=== PATIENT | female | born 1990 | race Caucasian/White ===

== ENCOUNTER 2023-05-21 21:19 | Emergency (ER) | payer OTHER ==
[2023-05-21] MEDS ORDERED: ONDANSETRON 4 MG/2 ML VIAL ONE (21:46)
[2023-05-21] MEDS ORDERED: KETOROLAC 30 MG/ML INJ ONE (21:47)
[2023-05-21] MEDS ORDERED: NA CHLORIDE 0.9% 1,000 ML ONE (21:47)
[2023-05-21] MEDS ORDERED: FAMOTIDINE 20 MG/2 ML VIAL IV ONE (21:47)
[2023-05-21] MEDS ORDERED: ACETAMINOPHEN 500 MG TAB ONE (23:40)
[2023-05-21 23:51] LABS: Specific Gravity 1.019 (1.005-1.030)
[2023-05-21 23:53] LABS: Absolute Lymphocytes (CBC) 1.2 K/uL (0.7-4.9); Absolute Monocytes 0.4 K/uL (0.1-1.3); Absolute Neutrophil 5.8 K/uL (1.8-8.0); Basophils % 0.3 % (0-1.3); Eosinophils % 0.5 % (0-4.4); Hematocrit 46.1 % (36.0-45.0); Hemoglobin 15.6 g/dL (12.0-15.0); Lymphocytes % 15.9 % (15.3-44.8); MCH 30.9 pg (27.0-35.0); MCHC 33.8 g/dL (32.0-36.0); MCV 91.3 fL (80-100); MPV 8.9 fL (7.6-11.3); Monocytes % 5.5 % (3.3-12.3); Neutrophils % 77.8 % (41.7-73.7); Nucleated Red Blood Cells % 0.2 % (0-0); Platelets 177 thou/uL (152-406); RBC Red Blood Cell Count 5.05 M/uL (3.86-4.86); Red Cell Distribution Width 12.8 % (12.1-15.2)
[2023-05-22 00:12] LABS: Specific Gravity 1.018 (1.005-1.030); Urine Bacteria <20 /HPF (<20); Urine Bilirubin NEGATIVE (Negative); Urine Blood Negative (Negative); Urine Clarity Extremely Turbid (Clear); Urine Color Yellow (Yellow); Urine Culture Reflex Order REFLEXED; Urine Glucose NEGATIVE (Negative); Urine Ketones NEGATIVE (Negative); Urine Microscopic Reflex YN ORDER UMIC; Urine Mucus Slight /HPF (None Seen); Urine Nitrite NEGATIVE (Negative); Urine Protein TRACE (Negative); Urine RBC <5 /HPF (None Seen); Urine Urobilinogen Normal (Normal); Urine WBC 20-50 /HPF (<5)
[2023-05-22 00:14] LABS: Albumin 3.9 g/dL (3.4-5.0); Albumin/Globulin Ratio 0.9 (1.1-1.8); Bilirubin Total 2.9 mg/dL (0.2-1.0); Globulin 4.3 g/dL (2.3-3.5); Protein, Total 8.2 g/dL (6.4-8.2)
[2023-05-22] MEDS ORDERED: FENTANYL CITR 100 MCG/2 ML ONE (00:28)
[2023-05-22] MEDS ORDERED: NA CHLORIDE 0.9% 1,000 ML ONE (01:49)
[2023-05-22 02:08] LABS: Albumin 3.5 g/dL (3.4-5.0); Albumin/Globulin Ratio 1.1 (1.1-1.8); Anion Gap 7.9 mEq/L (5.0-15.0); Bilirubin Indirect, Calculated 1.9 mg/dL (0.2-0.8); Bilirubin Total 2.9 mg/dL (0.2-1.0); Globulin 3.3 g/dL (2.3-3.5); Potassium 3.9 mEq/L (3.5-5.1); Protein, Total 6.8 g/dL (6.4-8.2)
--- NOTE | 2023-05-22 03:10 | EDPHYS ---
Physician Documentation [facility] Name: Karen Quick Age: 32 yrs Sex: Female : 1990 Arrival Date: 05/21/2023 Time: 21:19 Bed 15 Private MD: ED Physician Oren Gurrola HPI: 05/20 23:28 This 32 yrs old Female presents to ER via Ambulatory with complaints of Vomiting, Back kb Pain, Abdominal Pain. 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 Denies urinary symptoms, fever. . CLINICAL AIDE: 21:40 LMP 04/29/2023, unknown km8 Historical: - Allergies: 21:40 No Known Allergies; km8 - Home Meds: 21:40 None [Active]; km8 - PMHx: 21:40 None; km8 - PSHx: 21:40 Tonsillectomy; km8 - Immunization history:: Adult Immunizations unknown. - Infectious Disease History:: Denies. - Social history:: Smoking status: Patient denies any tobacco usage or history of. Patient/guardian denies using alcohol, street drugs. ROS: 23:29 Constitutional: As per HPI kb Exam: 23:29 Constitutional: This is a well developed, well nourished patient who is awake, alert, kb and in no acute distress. Head/Face: Normocephalic, atraumatic. ENT: Moist Mucous membranes Cardiovascular: Regular rate Respiratory: Respirations even and unlabored. No increased work of breathing. Talking in full sentences Back: No spinal tenderness. No costovertebral tenderness. Full range of motion. Skin: Warm, dry with normal turgor. Normal color. MS/ Extremity: Pulses equal, no cyanosis. Neurovascular intact. Full, normal range of motion. Neuro: Awake and alert, GCS 15, oriented to person, place, time, and situation. Moves all extremities. Normal gait. 23:49 Abdomen/GI: Inspection: abdomen appears normal, Bowel sounds: normal, Palpation: soft, kb in all quadrants, mild abdominal tenderness, in the right upper quadrant, Vital Signs: 21:39 BP 121 / 88; Pulse 78; Resp 16; Temp 96.9(TE); Pulse Ox 100% on R/A; Weight 65.77 kg km8 (R); Height 5 ft. 3 in. (R); Pain 8/; 21:46 BP 118 / 80; Pulse 57; Resp 17 S; Pulse Ox 100% on R/A; ha1 22:40 BP 99 / 60; Pulse 55; Resp 19 S; Pulse Ox 100% on R/A; ha1 23:40 BP 105 / 55; Pulse 61; Resp 17 S; Temp 97.9; Pulse Ox 98% ; ha1 05/21 00:50 BP 99 / 60; Pulse 57; Resp 17 S; Pulse Ox 98% ; ha1 01:47 BP 96 / 52; Pulse 74; Resp 16; Pulse Ox 96% on R/A; 8 02:00 BP 90 / 56; Pulse 56; Resp 16; Pulse Ox 100% on R/A; 8 04:02 BP 91 / 60; Pulse 51; Resp 17; Temp 98; Pulse Ox 99% ; Pain 0/10; bm8 05/20 21:39 Body Mass Index 25.69 (65.77 kg, 160.02 cm) [facility] 05/20 21:39 Pain Scale: Adult [facility] 04:02 Pain Scale: Adult [facility] MDM: 05/20 21:30 Patient medically screened. kb 23:29 Differential diagnosis: uti, kidney stone, pyelonephrosis. Data reviewed: vital signs, kb nurses notes. 05/21 00:36 Counseling: I had a detailed discussion with the patient and/or guardian regarding the kb historical points, exam findings, and any diagnostic results supporting the discharge/admit diagnosis, lab results, radiology results, the need to transfer to another facility, [facility] does not immediately have the required specialist. Refusal of service: The patient/guardian displays adequate decision making capability and despite a detailed discussion of alternatives, benefits, risks, and consequences refuses: transfer to [place] or [facility] at this time. Requests us to try [facility]. 00:43 ED course: [facility] does not have GI convertible top installer. Recommended [place]. Pt states she does kb not want to go to to [place] because she doesn't want to go outside of [facility] ([place]). Requests [facility]. [facility] does not have GI convertible top installer. Will contact [facility]. 00:47 Transition of care: After a detail discussion of the patient's case, care is kb transferred to Oren Gurrola MD. ED course: [facility] does not have GI convertible top installer. ED course: Mother in room now to discuss how they would like to proceed. 02:48 ED course: IPROCEDURE: Chest Abdomen Pelvis W Cont CLINICAL HISTORY: abd pain sp4 TECHNIQUE: Contiguous axial images obtained through the chest , abdomen and pelvis following the uneventful administration of IV contrast. Coronal and sagittal reformatted images provided. This exam was performed according to our departmental dose-optimization program, which includes automated exposure control, adjustment of the mA and/or kV according to patient size and/or use of iterative reconstruction technique. COMPARISON: No prior exams provided for comparison. FINDINGS: Lungs: No focal consolidation. Airways are patent. Pleura: No effusion. No pneumothorax. Heart and pericardium: The heart is normal in size. No pericardial effusion. Mediastinum and jason: No pathologically enlarged lymph nodes. Lower neck and chest wall: Unremarkable Vessels: Unremarkable Bones: Unremarkable Liver: Unremarkable Gallbladder and biliary system: Multiple gallstones within partially contracted gallbladder with gallbladder sludge. Stones extending to the neck of the gallbladder. Pancreas: Unremarkable Spleen: Unremarkable Adrenals: Unremarkable Kidneys: No evidence of urolithiasis or obstructive uropathy. Gl : No obstruction. No appreciable mucosal thickening. Appendix: No findings to suggest acute appendicitis. Urinary bladder: Unremarkable Reproductive: Small involuting left ovarian follicle and trace fluid in the pelvis, which may be physiologic Lymph nodes: No pathologically enlarged lymph nodes. Peritoneum: No focal fluid collection. No free air. Vessels: No abdominal aortic aneurysm. Abdominal wall: Unremarkable Bones: Unremarkable IMPRESSION: 1. Multiple gallstones within partially contracted gallbladder with gallbladder sludge. Stones extending to the neck of the gallbladder. 2. Small involuting left ovarian follicle and trace fluid in the pelvis, which may be physiologic. 3. No other evidence of acute abdominal or pelvic pathology.. 05/20 21:41 Order name: CBC with Diff; Complete Time: 00:02 kb 05/20 21:41 Order name: CMP; Complete Time: 00:19 kb 05/20 21:41 Order name: Lipase; Complete Time: 00:19 kb 05/20 21:41 Order name: Test, Urine; Complete Time: 23:57 kb 05/20 21:41 Order name: Urinalysis w/ reflexes; Complete Time: 00:14 kb 05/21 00:16 Order name: Urine Culture EDMS 05/21 01:02 Order name: LFT's; Complete Time: 02:48 sp4 05/21 01:03 Order name: BMP; Complete Time: 02:48 ha1 05/21 02:52 Order name: Alcohol Level sp4 05/21 02:58 Order name: Hepatitis Panel sp4 05/20 21:41 Order name: Abdomen Limited US kb 05/21 00:55 Order name: CT Chest, Abdomen, Pelvis - W/Contrast sp4 05/20 21:41 Order name: IV Saline Lock; Complete Time: 22:29 kb 05/20 21:41 Order name: Labs collected and sent; Complete Time: 22:29 kb 05/21 01:02 Order name: NPO; Complete Time: 01:15 sp4 Administered Medications: 05/20 22:20 Drug: NS 0.9% IV 1000 ml IV at 1 bolus Per protocol; 1000 mL bolus Route: IV; Rate: 1 ha1 bolus; Site: left wrist; 05/21 01:56 Follow up: Response: No adverse reaction; IV Status: Completed infusion; IV Intake: bm8 1000ml 05/20 22:20 Drug: Famotidine IVP 20 mg IVP once; dilute with 10 mL 0.9% NaCl; give over 2 minutes ha1 Route: IVP; Site: right forearm; 23:02 Follow up: Response: No adverse reaction; Marked relief of symptoms ha1 22:22 Drug: Ondansetron IVP 4 mg IVP once; over 2 minutes Route: IVP; Site: left wrist; ha1 23:02 Follow up: Response: No adverse reaction; Marked relief of symptoms; Nausea is decreasedha1 22:24 Drug: TORadol - Ketorolac IVP 15 mg IVP once Route: IVP; Site: left wrist; ha1 23:03 Follow up: Response: No adverse reaction; Pain is unchanged, physician notified ha1 23:40 Drug: Acetaminophen PO 1000 mg PO once Route: PO; ha1 05/21 01:55 Follow up: Response: No adverse reaction bm8 00:34 Drug: fentaNYL (PF) IVP 25 mcg IVP once Route: IVP; Site: left forearm; ha1 00:50 Follow up: Response: No adverse reaction; Pain is decreased; RASS: Alert and Calm (0) ha1 01:55 Follow up: Response: No adverse reaction bm8 01:55 Drug: NS 0.9% IV 1000 ml IV at 125 ml/hr continuous Route: IV; Rate: 125 ml/hr; Site: bm8 left forearm; 04:05 Follow up: Response: No adverse reaction; IV Status: Infusion continued bm8 03:33 Drug: Albumin IVPB 25 grams 100 ml IVPB once; (Note: Albumin 25% concentration) Volume: bm8 100 ml; Route: IVPB; Site: left wrist; 04:17 Follow up: Response: No adverse reaction; IV Status: Completed infusion; IV Intake: bm8 100ml Disposition: 01:05 Co-signature as Attending Physician, Oren Gurrola MD I agree with the assessment sp4 and plan of care. I reviewed the patient's care provided by Advanced Practice Provider \T\ agree w/ the diagnosis \T\ care plan. I personally saw the pt \T\ performed a substantive portion of the visit, incldng all aspects of the (History/Exam/Medical Decision Making). Disposition Summary: 05/22/23 03:09 Transfer Ordered Notes: Transfer Location: [facility]-System sp4 Reason: Higher level of care sp4 Condition: Serious sp4 Problem: new sp4 Symptoms: are unchanged sp4 Accepting Physician: Staff Toxicologist at [facility](05/22/23 04:16) bm8 Diagnosis - Alcoholic hepatitis sp4 - Nausea vomiting, cholelithiasis without cholecystitis sp4 Forms: - Medication Reconciliation Form sp4 - SBAR form sp4 Signatures: Dispatcher [employer] EDKristy Crook, TRAVIS-C INSIDE SALES ACCOUNT EXECUTIVE-Tere Anaya, RN RN ha1 Oren Gurrola MD MD sp4 Diana Campbell, ARIEL RN km8 Mariusz Anderson, RN RN bm8 Corrections: (The following items were deleted from the chart) 05/20 21:41 21:41 CBC+H.LAB.BRZ ordered. EDMS EDMS 21:41 21:41 COMPREHENSIVE METABOLIC PANEL+C.LAB.BRZ ordered. EDMS EDMS 21:41 21:41 LIPASE+C.LAB.BRZ ordered. EDMS EDMS 21:41 21:41 Test, Urine+UC.LAB.BRZ ordered. EDMS EDMS 21:41 21:41 Urinalysis+U.LAB.BRZ ordered. EDMS EDMS 21:41 21:40 PSHx: None; km8 km8 23:50 23:29 Constitutional: This is a well developed, well nourished patient who is awake, kb alert, and in no acute distress. Head/Face: Normocephalic, atraumatic. ENT: Moist Mucous membranes Cardiovascular: Regular rate Respiratory: Respirations even and unlabored. No increased work of breathing. Talking in full sentences Skin: Warm, dry with normal turgor. Normal color. MS/ Extremity: Pulses equal, no cyanosis. Neurovascular intact. Full, normal range of motion. Neuro: Awake and alert, GCS 15, oriented to person, place, time, and situation. Moves all extremities. Normal gait. kb 23:50 23:29 Abdomen/GI: Inspection: abdomen appears normal, Bowel sounds: normal, Palpation: kb soft, in all quadrants, mild abdominal tenderness, in the right lower quadrant and left lower quadrant, kb 23:50 23:29 Back: pain, that is mild, of the low back area, kb 05/21 04:16 03:09 Staff Toxicologist at [facility] sp4 bm8
--- NOTE | 2023-05-22 03:10 | ER ---
Nurse's Notes [facility] Name: Karen Quick Age: 32 yrs Sex: Female : 1990 Arrival Date: 05/21/2023 Time: 21:19 Bed 15 Private MD: Diagnosis: Alcoholic hepatitis;Nausea vomiting, cholelithiasis without cholecystitis Presentation: 05/20 21:39 Chief complaint: Patient states: vomiting with lower ABD and lower back pain starting km8 at 2100. Coronavirus screen: Client denies travel out of the [place] in the last 14 days. Ebola Screen: No symptoms or risks identified at this time. Initial Sepsis Screen: Does the patient meet any 2 criteria? No. Patient's initial sepsis screen is negative. Does the patient have a suspected source of infection? No. Patient's initial sepsis screen is negative. Risk Assessment: Do you want to hurt yourself or someone else? Patient reports no desire to harm self or others. Onset of symptoms was May 21, 2023 at 21:00. 21:39 Method Of Arrival: Ambulatory km8 21:39 Acuity: EMILY 3 km8 Triage Assessment: 21:40 General: Appears in no apparent distress. uncomfortable, Behavior is calm, cooperative, km8 appropriate for age. Pain: Complains of pain in right lower quadrant and left lower quadrant Pain radiates to low back area Pain currently is 8 out of 10 on a pain scale. at worst was 10 out of 10 on a pain scale. Quality of pain is described as sharp, Pain began 30 min ago. Is intermittent. EENT: No signs and/or symptoms were reported regarding the EENT system. Neuro: Level of Consciousness is awake, alert, obeys commands, Oriented to person, place, time, situation. Cardiovascular: Denies chest pain, shortness of breath, Patient's skin is warm and dry. Respiratory: Airway is patent Respiratory effort is even, unlabored, Respiratory pattern is regular, symmetrical. GI: Reports lower abdominal pain, vomiting. : No signs and/or symptoms were reported regarding the genitourinary system. Derm: Skin is intact, is healthy with good turgor, Skin is dry, Skin is pink, warm \T\ dry. normal, Skin temperature is warm. Musculoskeletal: Range of motion: intact in all extremities. DIRECTOR COMMUNITY ORGANIZATION: 21:40 LMP 04/29/2023, unknown Historical: - Allergies: 21:40 No Known Allergies; 8 - Home Meds: 21:40 None [Active]; 8 - PMHx: 21:40 None; 8 - PSHx: 21:40 Tonsillectomy; 8 - Immunization history:: Adult Immunizations unknown. - Infectious Disease History:: Denies. - Social history:: Smoking status: Patient denies any tobacco usage or history of. Patient/guardian denies using alcohol, street drugs. Screenin:05 [facility] ED Fall Risk Assessment (Adult) History of falling in the last 3 months, ha1 including since admission No falls in past 3 months (0 pts) Confusion or Disorientation No (0 pts) Intoxicated or Sedated No (0 pts) Impaired Gait No (0 pts) Mobility Assist Device Used No (0 pt) Altered Elimination No (0 pt) Score/Fall Risk Level 0 - 2 = Low Risk Oriented to surroundings, Maintained a safe environment, Educated pt \T\ family on fall prevention, incl call for assistance when getting out of bed, Hourly rounding (assess needs \T\ fall precautionary measures) done. Abuse screen: Denies threats or abuse. Denies injuries from another. Nutritional screening: No deficits noted. Tuberculosis screening: No symptoms or risk factors identified. Assessment: 21:43 General: Appears uncomfortable, Behavior is calm, cooperative. Pain: Complains of pain ha1 in abdomen Pain radiates to low back area Pain currently is 9 out of 10 on a pain scale. Quality of pain is described as aching, throbbing, Pain began suddenly. Neuro: Level of Consciousness is awake, alert, obeys commands, Oriented to person, place, time, situation. Cardiovascular: Capillary refill < 3 seconds Patient's skin is warm and dry. Respiratory: Airway is patent Respiratory effort is even, unlabored, Respiratory pattern is regular, symmetrical. GI: Abdomen is flat, non-distended, Bowel sounds present X 4 quads. Reports upper abdominal pain, nausea, vomiting. Derm: Skin is pink, warm \T\ dry. Musculoskeletal: Circulation, motion, and sensation intact. 22:40 Reassessment: Patient and/or family updated on plan of care and expected duration. Pain ha1 level reassessed. Patient is alert, oriented x 3, equal unlabored respirations, skin warm/dry/pink. 23:40 Reassessment: Patient and/or family updated on plan of care and expected duration. Pain ha1 level reassessed. Patient is alert, oriented x 3, equal unlabored respirations, skin warm/dry/pink. pain 9/10 notified care provider. denies nausea. 05/21 00:50 Reassessment: Patient and/or family updated on plan of care and expected duration. Pain ha1 level reassessed. Patient is alert, oriented x 3, equal unlabored respirations, skin warm/dry/pink. Patient denies pain at this time. Patient states feeling better. Patient states symptoms have improved. 01:52 Reassessment: Patient and/or family updated on plan of care and expected duration. Pain ha1 level reassessed. Patient is alert, oriented x 3, equal unlabored respirations, skin warm/dry/pink. 03:43 Reassessment: report given to yenni johnson. bm8 04:02 Reassessment: Patient appears in no apparent distress at this time. Patient and/or bm8 family updated on plan of care and expected duration. Pain level reassessed. Patient is alert, oriented x 3, equal unlabored respirations, skin warm/dry/pink. Patient denies pain at this time. Patient states feeling better. Patient states symptoms have improved. Vital Signs: 05/20 21:39 BP 121 / 88; Pulse 78; Resp 16; Temp 96.9(TE); Pulse Ox 100% on R/A; Weight 65.77 kg [facility] (R); Height 5 ft. 3 in. (R); Pain 8/10; 21:46 BP 118 / 80; Pulse 57; Resp 17 S; Pulse Ox 100% on R/A; ha1 22:40 BP 99 / 60; Pulse 55; Resp 19 S; Pulse Ox 100% on R/A; ha1 23:40 BP 105 / 55; Pulse 61; Resp 17 S; Temp 97.9; Pulse Ox 98% ; ha1 05/21 00:50 BP 99 / 60; Pulse 57; Resp 17 S; Pulse Ox 98% ; ha1 01:47 BP 96 / 52; Pulse 74; Resp 16; Pulse Ox 96% on R/A; 8 02:00 BP 90 / 56; Pulse 56; Resp 16; Pulse Ox 100% on R/A; km8 04:02 BP 91 / 60; Pulse 51; Resp 17; Temp 98; Pulse Ox 99% ; Pain 0/10; bm8 05/20 21:39 Body Mass Index 25.69 (65.77 kg, 160.02 cm) km8 05/20 21:39 Pain Scale: Adult km8 04:02 Pain Scale: Adult bm8 ED Course: 05/20 21:25 Patient arrived in ED. ra3 21:30 Kristy Ward FNP-C is PHCP. kb 21:30 Oren Gurrola MD is Attending Physician. kb 21:40 Triage completed. km8 21:40 Arm band placed on right wrist. km8 21:43 Patient has correct armband on for positive identification. Bed in low position. Call ha1 light in reach. Side rails up X 1. 21:44 Tere Aguillon RN is Primary Nurse. ha1 22:30 Tere Aguillon RN is Primary Nurse. ha1 22:32 CBC with Diff Sent. ha1 22:32 CMP Sent. ha1 22:32 Lipase Sent. ha1 22:32 Test, Urine Sent. ha1 22:32 Urinalysis w/ reflexes Sent. ha1 22:38 Abdomen Limited US In Process Unspecified. EDMS 05/21 00:00 Inserted saline lock: 22 gauge in left forearm, using aseptic technique. IV is patent, bm8 with fluids infusing freely, Flushed left saline lock with 5 ml normal saline. 01:53 CT Chest, Abdomen, Pelvis - W/Contrast In Process Unspecified. EDMS 02:30 Initiated transfer to [facility], spoke with Mary Castillo. 03:01 Pt accepted to [facility] [place] Floor 10 [address] Rm: [id number] Fransisco Souza per Mary Castillo. 03:20 EMS stated they had no trucks available. wm 03:27 [facility] will transport with an ETA \T\ 1495. 04:02 Provided Education on: need for transfer. bm8 04:02 No provider procedures requiring assistance completed. bm8 04:18 Patient transferred, IV remains in place. bm8 Administered Medications: 05/20 22:20 Drug: NS 0.9% IV 1000 ml IV at 1 bolus Per protocol; 1000 mL bolus Route: IV; Rate: 1 ha1 bolus; Site: left wrist; 05/21 01:56 Follow up: Response: No adverse reaction; IV Status: Completed infusion; IV Intake: bm8 1000ml 05/20 22:20 Drug: Famotidine IVP 20 mg IVP once; dilute with 10 mL 0.9% NaCl; give over 2 minutes ha1 Route: IVP; Site: right forearm; 23:02 Follow up: Response: No adverse reaction; Marked relief of symptoms ha1 22:22 Drug: Ondansetron IVP 4 mg IVP once; over 2 minutes Route: IVP; Site: left wrist; ha1 23:02 Follow up: Response: No adverse reaction; Marked relief of symptoms; Nausea is decreasedha1 22:24 Drug: TORadol - Ketorolac IVP 15 mg IVP once Route: IVP; Site: left wrist; ha1 23:03 Follow up: Response: No adverse reaction; Pain is unchanged, physician notified ha1 23:40 Drug: Acetaminophen PO 1000 mg PO once Route: PO; ha1 05/21 01:55 Follow up: Response: No adverse reaction bm8 00:34 Drug: fentaNYL (PF) IVP 25 mcg IVP once Route: IVP; Site: left forearm; ha1 00:50 Follow up: Response: No adverse reaction; Pain is decreased; RASS: Alert and Calm (0) ha1 01:55 Follow up: Response: No adverse reaction bm8 01:55 Drug: NS 0.9% IV 1000 ml IV at 125 ml/hr continuous Route: IV; Rate: 125 ml/hr; Site: bm8 left forearm; 04:05 Follow up: Response: No adverse reaction; IV Status: Infusion continued bm8 03:33 Drug: Albumin IVPB 25 grams 100 ml IVPB once; (Note: Albumin 25% concentration) Volume: bm8 100 ml; Route: IVPB; Site: left wrist; 04:17 Follow up: Response: No adverse reaction; IV Status: Completed infusion; IV Intake: bm8 100ml Medication: 05/20 23:06 VIS not applicable for this client. ha1 Intake: 05/21 01:56 IV: 1000ml; Total: 1000ml. bm8 04:17 IV: 100ml; Total: 1100ml. bm8 Outcome: 03:09 ER care complete, transfer ordered by . sp4 04:16 Patient left the ED. bm8 04:17 Transferred by ground EMS to [facility], Transfer form bm8 completed. X-rays sent w/ patient. Note: report to yenni Johnson 04:17 Condition: stable 04:17 Instructed on the need for transfer, Demonstrated understanding of instructions, Signatures: Dispatcher [employer] EDMS Kristy Ward, REPAIR CAMERAMAN-C REPAIR CAMERAMAN-Ckb Gill Rosas Heidy, RN RN ha1 Oren Gurrola MD MD sp4 Marx, Katie, RN RN km8 Maine Hunter ra3 Mariusz Anderson, RN RN bm8 Corrections: (The following items were deleted from the chart) 05/20 21:41 21:40 PSHx: None; km8 km8 05/21 00:25 05/20 23:40 BP 105 / 55; Pulse 61bpm; Resp 17bpm; Spontaneous; Pulse Ox 98%; ha1 ha1 05/21 01:52 00:40 Reassessment: Patient and/or family updated on plan of care and expected ha1 duration. Pain level reassessed. Patient is alert, oriented x 3, equal unlabored respirations, skin warm/dry/pink. ha1 02:35 02:34 Reassessment: Patient appears in no apparent distress at this time. Patient km8 and/or family updated on plan of care and expected duration. Pain level reassessed. Patient is alert, oriented x 3, equal unlabored respirations, skin warm/dry/pink. Troy Gurrola at bedside discussing results with pt km8 02:36 02:35 Initiated transfer to [facility], spoke with Mary pino 03:33 02:30 Initiated transfer to [facility], spoke with Mary pino
[2023-05-22] MEDS ORDERED: ALBUMIN HUMAN 25% 100 ML IV ONE (03:11)
[2023-05-22 05:11] LABS: HBsAG Nonreactive Report Report; Hepatitis B Core IgM Nonreactive (Nonreactive); Hepatitis B surface AG Interp. Nonreactive (Nonreactive); Hepatitis C Virus Ab Nonreactive (Nonreactive)
[2023-05-22 07:43] VITALS: BP 91/60; TEMP 98; O2SAT 99
--- NOTE | 2023-05-22 12:49 | RAD REPORT ---
EXAM DESCRIPTION: US - Abdomen Exam Limited - 05/21/2023 10:36 pm CLINICAL HISTORY: The patient is 32 years old and is Female; ABD PAIN Bed: TECHNIQUE: Real-time ultrasound of the right upper quadrant with image documentation. COMPARISON: No relevant prior studies available. FINDINGS: GALLBLADDER: Gallbladder demonstrates complete posterior shadowing, most compatible with large intraluminal stones completely or nearly completely filling the gallbladder lumen. Reported negative sonographic Hayes sign. No gallbladder wall thickening or pericholecystic free fluid. COMMON BILE DUCT: Unremarkable as visualized. No stones. No dilation. Common bile duct measures 0.4 cm in diameter. IMPRESSION: Cholelithiasis negative reported Hayes's sign and without sonographic evidence of acute cholecystitis. If there is high clinical suspicion for acute cholecystitis, or to evaluate for chronic cholecystitis or biliary dyskinesia, further evaluation by HIDA scan could be performed. Electronically signed by: Jeremy Steele MD 05/22/2023 12:24 AM CDT Due to temporary technical issues with the PACS/Fluency reporting system, reports are being signed by the in house radiologist without review as a courtesy to ensure prompt reporting. The interpreting r adiologist is fully responsible for the content of the report.
--- NOTE | 2023-05-22 13:12 | RAD REPORT ---
EXAM DESCRIPTION: CT - Chest Abdomen Pelvis W Cont - 05/22/2023 6:45 am CLINICAL HISTORY: Abd pain TECHNIQUE: Contiguous axial images obtained through the chest , abdomen and pelvis following the une ventful administration of IV contrast. Coronal and sagittal reformatted images provided. This exam was performed according to our departmental dose-optimization program, which includes autom ated exposure control, adjustment of the mA and/or kV according to patient size and/or use of iterati ve reconstruction technique. COMPARISON: No prior exams provided for comparison. FINDINGS: Lungs: No focal consolidation. Airways are patent. Pleura: No effusion. No pneumothorax. Heart and pericardium: The heart is normal in size. No pericardial effusion. Mediastinum and jason: No pathologically enlarged lymph nodes. Lower neck and chest wall: Unremarkable Vessels: Unremarkable Bones: Unremarkable Liver: Unremarkable Gallbladder and biliary system: Multiple gallstones within partially contracted gallbladder with gall bladder sludge. Stones extending to the neck of the gallbladder. Pancreas: Unremarkable Spleen: Unremarkable Adrenals: Unremarkable Kidneys: No evidence of urolithiasis or obstructive uropathy. Gl : No obstruction. No appreciable mucosal thickening. Appendix: No findings to suggest acute appendicitis. Urinary bladder: Unremarkable Reproductive: Small involuting left ovarian follicle and trace fluid in the pelvis, which may be phys iologic Lymph nodes: No pathologically enlarged lymph nodes. Peritoneum: No focal fluid collection. No free air. Vessels: No abdominal aortic aneurysm. Abdominal wall: Unremarkable Bones: Unremarkable IMPRESSION: 1. Multiple gallstones within partially contracted gallbladder with gallbladder sludge . Stones extending to the neck of the gallbladder. 2. Small involuting left ovarian follicle and trace fluid in the pelvis, which may be physiologic. 3. No other evidence of acute abdominal or pelvic pathology. Electronically signed by: Brandt Palacios MD 05/22/2023 02:29 AM CDT Due to temporary technical issues with the PACS/Fluency reporting system, reports are being signed by the in house radiologist without review as a courtesy to ensure prompt reporting. The interpreting r adiologist is fully responsible for the content of the report.
== END 2023-05-22 04:16 | disposition short-term general hospital (02) ==
LOC: ER 21:19
DX: K70.10 Alcoholic hepatitis without ascites (principal); K80.20 Calculus of gallbladder without cholecystitis without obstruction
CPT/HCPCS: 87088; 85025; 81001; 87086; 80048; 36415; 81025; 80076; 83690; 80053; 80074; 71260; 74177; 76705; 99285; 82077; Q9967; J3010; J2405; P9047; J7030 ×2

== ENCOUNTER 2023-10-12 15:39 | Emergency (ER) | payer OTHER ==
[2023-10-12] MEDS ORDERED: ONDANSETRON 4 MG/2 ML VIAL ONE (16:53)
[2023-10-12] MEDS ORDERED: NA CHLORIDE 0.9% 1,000 ML ONE ×2 (16:54→20:31)
[2023-10-12] MEDS ORDERED: ACETAMINOPHEN 500 MG TAB ONE (16:54)
--- NOTE | 2023-10-12 17:16 | RAD REPORT ---
EXAM DESCRIPTION: RAD - Chest Pa And Lat (2 Views) - 10/12/2023 5:08 pm CLINICAL HISTORY: Chest pain;Congestion;Cough Chest pain. COMPARISON: Thorax Wo Con dated 4Chest Single View dated 10/12/2023; Chest Single View dated ; Chest Single View dated 04/30/2016; Chest Single View dated 07/17/2015No comparisonsChest Abdo men Pelvis W Cont dated 05/22/2023 FINDINGS: Moderate airspace opacity in the left lung base in the right mid lung likely represents pn eumonia. The heart is normal in size. No displaced fractures. IMPRESSION: Moderate consolidation left lung base likely pneumonia. Mild consolidation right mid lung also likely pneumonia.
[2023-10-12 17:31] LABS: Absolute Lymphocytes (CBC) 0.3 K/uL (0.7-4.9); Absolute Monocytes 0.3 K/uL (0.1-1.3); Absolute Neutrophil 2.5 K/uL (1.8-8.0); Basophils % 0.1 % (0-1.3); Hematocrit 40.7 % (36.0-45.0); Hemoglobin 13.7 g/dL (12.0-15.0); Lymphocytes % 9.7 % (15.3-44.8); MCH 30.5 pg (27.0-35.0); MCHC 33.7 g/dL (32.0-36.0); MCV 90.4 fL (80-100); MPV 8.2 fL (7.6-11.3); Monocytes % 9.6 % (3.3-12.3); Neutrophils % 80.6 % (41.7-73.7); Nucleated Red Blood Cells % 0.2 % (0-0); Platelets 143 thou/uL (152-406)
[2023-10-12 17:44] LABS: Anion Gap 8.4 mEq/L (5.0-15.0); Potassium 3.4 mEq/L (3.5-5.1)
[2023-10-12 17:52] LABS: SARS-CoV-2 Antigen CONTROL BLUE LINE VIS/BG OK; SARS-CoV-2 Antigen Rapid Res Negative (Negative)
[2023-10-12 19:12] LABS: PT Prothrombin Time 12.7 SECONDS (9.4-12.5); PTT, Activated Partial Thromb 32.2 SECONDS (24.3-36.9); Protime INR 1.14
[2023-10-12 19:19] LABS: Albumin 2.7 g/dL (3.4-5.0); Albumin/Globulin Ratio 0.8 (1.1-1.8); Bilirubin Direct 0.2 mg/dL (0-0.2); Bilirubin Indirect, Calculated 0.6 mg/dL (0.2-0.8); Bilirubin Total 0.8 mg/dL (0.2-1.0); Globulin 3.6 g/dL (2.3-3.5); Protein, Total 6.3 g/dL (6.4-8.2)
[2023-10-12] MEDS ORDERED: AZITHROMYCIN 500 MG INJ IVPB ONE (20:30)
[2023-10-12] MEDS ORDERED: CEFTRIAXONE 1000 MG/VIAL ONE (20:30)
[2023-10-12] MEDS ORDERED: POTASSIUM 25 MEQ EFFERV TAB ONE (20:30)
[2023-10-12] MEDS ORDERED: NA CHLORIDE 0.9% 250 ML ONE (20:31)
--- NOTE | 2023-10-12 21:27 | EDPHYS ---
Physician Documentation [facility] Name: Karen Quick Age: 33 yrs Sex: Female : 1990 Arrival Date: 10/12/2023 Time: 15:39 Bed 10 Private MD: ED Physician Za Bermeo HPI: 10/11 16:54 This 33 yrs old Female presents to ER via Ambulatory with complaints of Cough, Chills, sb4 Weakness. 16:54 Patient states she started feeling poorly about 3 days ago with cough, chills, nausea, sb4 vomiting, sinus headache, nasal congestion. She states that she has been taking Tylenol intermittently as well as [place] cold and flu. She states that she can hold down Sprite but has been throwing up Gatorade and other things that she tries to eat.. 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 - Infectious Disease History:: Denies. - Social history:: Smoking status: Patient denies any tobacco usage or history of. ROS: 16:54 Cardiovascular: Negative for chest pain, palpitations, and edema, sb4 16:54 Constitutional: Positive for chills, fatigue, malaise, 16:54 ENT: Positive for nasal discharge, sinus congestion, 16:54 Respiratory: Positive for cough, 16:54 Neuro: Positive for headache, 16:54 All other systems are negative, Exam: 16:54 Head/Face: Normocephalic, atraumatic. Eyes: Extra-ocular motions intact. Periorbital sb4 areas with no swelling, redness, or edema. ENT: Mucous membranes moist. Respiratory: Lungs have equal breath sounds bilaterally, clear to auscultation and percussion. No rales, rhonchi or wheezes noted. No increased work of breathing, no retractions or nasal flaring. Abdomen/GI: Soft, non-tender, no distension. Skin: Warm, dry with normal turgor. Normal color with no rashes, no lesions, and no evidence of cellulitis. 16:54 Constitutional: The patient appears alert, awake, obviously ill, 16:54 Cardiovascular: Rate: tachycardic, Rhythm: regular, Vital Signs: 16:35 BP 107 / 58; Pulse 119; Resp 19; Temp 101.8; Pulse Ox 97% on R/A; Weight 63.5 kg; ap3 Height 5 ft. 3 in. ; Pain 0/10; 17:25 BP 90 / 63; Pulse 93; Resp 16; Pulse Ox 95% on R/A; tl4 18:39 BP 103 / 65; Pulse 103; Resp 20; Pulse Ox 96% on R/A; tl4 19:08 BP 86 / 48; Pulse 95; Resp 20; Pulse Ox 93% on R/A; tl4 19:39 BP 92 / 59; Pulse 71; Resp 22; Pulse Ox 94% on R/A; tl4 20:21 BP 90 / 63; Pulse 72; Resp 20; Pulse Ox 95% on R/A; tl4 21:04 BP 87 / 63; Pulse 87; Resp 18; Temp 98.6(O); Pulse Ox 95% on R/A; tl4 21:40 BP 98 / 52; Pulse 65; Resp 20; Pulse Ox 95% on R/A; tl4 22:18 BP 96 / 50; Pulse 83; Resp 20; Pulse Ox 95% on R/A; tl4 22:54 BP 104 / 66; Pulse 73; Resp 16; Temp 98.9(O); Pulse Ox 97% on R/A; tl4 16:35 Body Mass Index 24.80 (63.50 kg, 160.02 cm) ap3 16:35 Pain Scale: Adult ap3 MDM: 16:44 Patient medically screened. sb4 20:00 Differential Diagnosis: Bronchitis Influenza Sinusitis Pharyngitis Viral Syndrome cp Pneumonia. 21:03 Data reviewed: vital signs, nurses notes, lab test result(s), radiologic studies, plain cp films. Counseling: I had a detailed discussion with the patient and/or guardian regarding the historical points, exam findings, and any diagnostic results supporting the discharge/admit diagnosis, lab results, radiology results, to return to the emergency department if symptoms worsen or persist or if there are any questions or concerns that arise at home. Response to treatment: the patient's symptoms have markedly improved after treatment, patient is well hydrated. and as a result, I will discharge patient. 10/11 16:44 Order name: SARS RAPID; Complete Time: 17:54 [facility] 10/11 16:44 Order name: Flu; Complete Time: 17:54 [facility] 10/11 16:44 Order name: CBC with Diff; Complete Time: 17:36 [facility] 10/11 19:34 Interpretation: Normal except: WBC 3.10; PLT 143; CECIL% 80.6; LYM% 9.7; LYMA 0.3. cp 10/11 16:44 Order name: BMP; Complete Time: 17:45 [facility] 10/11 19:34 Interpretation: Normal except: NA 135; K 3.4; GFR 78. cp 10/11 17:29 Order name: Blood Culture Adult (2) [facility] 10/11 17:29 Order name: Lactate w/ 2H reflex if indic.; Complete Time: 20:21 [facility] 10/11 17:29 Order name: LFT's; Complete Time: 19:34 [facility] 10/11 19:34 Interpretation: Normal except: TP 6.3; ALB 2.7; GLOB 3.6; A/G 0.8. cp 10/11 17:29 Order name: PT-INR; Complete Time: 19:34 [facility] 10/11 17:29 Order name: Ptt, Activated; Complete Time: 19:34 [facility] 10/11 19:37 Order name: Urinalysis w/ reflexes; Complete Time: 08:04 cp 10/11 19:37 Order name: Test, Urine; Complete Time: 08:04 cp 10/11 21:56 Order name: Urine Culture [facility] 10/11 16:44 Order name: Chest Pa And Lat (2 Views) XRAY; Complete Time: 17:24 [facility] 10/11 19:35 Interpretation: Report reviewed. 10/11 16:44 Order name: IV Start; Complete Time: 17:17 [facility] 10/11 19:59 Order name: PO challenge; Complete Time: 20:53 cp 10/11 20:52 Order name: Vital Signs; Complete Time: 20:54 cp Administered Medications: 17:17 Drug: NS 0.9% IV 1000 ml IV at 1 bolus Per protocol; 1000 mL bolus Route: IV; Rate: 1 tl4 bolus; Site: left antecubital; Delivery: Primary tubing; 19:14 Follow up: Response: No adverse reaction; IV Status: Completed infusion; IV Intake: tl4 1000ml 17:17 Drug: Ondansetron IVP 4 mg IVP once; over 2 minutes Route: IVP; Infused Over: 2 mins; tl4 Site: left antecubital; 19:14 Follow up: Response: No adverse reaction tl4 17:17 Drug: Acetaminophen PO 1000 mg PO once Route: PO; tl4 19:14 Follow up: Response: No adverse reaction tl4 20:53 Drug: NS 0.9% IV 1000 ml IV at 1 bolus Per protocol; 1000 mL bolus Route: IV; Rate: 1 tl4 bolus; Site: left antecubital; Delivery: Primary tubing; 22:53 Follow up: Response: No adverse reaction; IV Status: Completed infusion; IV Intake: tl4 1000ml 20:53 Drug: Rocephin IV 1 grams IV at calculated rate once; Given slow IV push per pharmacy tl4 instructions Route: IV; Rate: calculated rate; Site: left antecubital; 21:20 Follow up: Response: No adverse reaction; IV Status: Completed infusion; IV Intake: [id number] 20:53 Drug: Zithromax IVPB 500 mg IVPB once over 1 hrs; mix in 250 mL NS Route: IVPB; Infused tl4 Over: 1 hrs; Site: left antecubital; Delivery: Primary tubing; 22:53 Follow up: Response: No adverse reaction; IV Status: Completed infusion; IV Intake: tl4 250ml 20:53 Drug: Potassium PO Effervescent Tablet 50 mEq PO once; dissolve in 4 ounces of water or tl4 juice Route: PO; 21:20 Follow up: Response: No adverse reaction tl4 Disposition Summary: 10/12/23 21:26 Discharge Ordered Notes: Location: Home cp Problem: new cp Symptoms: have improved cp Condition: Stable cp Diagnosis - Pneumonia in diseases classified elsewhere cp - Weakness cp Followup: cp - With: Private Physician - When: 2 - 3 days - Reason: Recheck today's complaints Discharge Instructions: - Discharge Summary Sheet cp - Community-Acquired Pneumonia, Adult cp - Weakness cp Forms: - Medication Reconciliation Form cp - Antibiotic Education cp - Prescription Opioid Use cp - Patient Portal Instructions cp - Leadership Thank You Letter cp Prescriptions: - Bromfed DM 2-30-10 mg/5 mL Oral syrup - administer 10 milliliter ORAL route every 8 hours as needed for cold symptoms; cp 240 milliliter; Refills: 0, Product Selection Permitted - Augmentin 875-125 mg Oral Tablet - take 1 tablet ORAL route every 12 hours for 10 days; 20 tablet; Refills: 0, cp Product Selection Permitted - Zithromax Z-Ramsey 250 mg Oral Tablet - take 1 tablet ORAL route as directed for 5 days Day 1 - take two (2) tablets cp one time. Day 2, 3, 4 , 5 take one (1) tablet once daily.; 6 tablet; Refills: 0, Product Selection Permitted Signatures: Dispatcher [employer] EDMS Bob Stapleton PA PA cp Prokisch, Amanda, RN RN ap3 Juliana Martinez PAKyle PAKyle sb4 Ady Ramon RN RN tl4 Corrections: (The following items were deleted from the chart) 17:30 17:30 BLOOD CULTURE*+BA.LAB.BRZ ordered. EDMS EDMS 17:30 17:30 LACTATE+C.LAB.BRZ ordered. EDMS EDMS 17:30 17:30 HEPATIC FUNCTION+C.LAB.BRZ ordered. EDMS EDMS 17:30 17:30 PROTIME (+INR)+COAG.LAB.BRZ ordered. EDMS EDMS 17:30 17:30 PTT, ACTIVATED+COAG.LAB.BRZ ordered. EDMS EDMS 19:37 19:37 Urinalysis+U.LAB.BRZ ordered. EDMS EDMS 19:37 19:37 Test, Urine+UC.LAB.BRZ ordered. EDMS EDMS
--- NOTE | 2023-10-12 21:27 | ER ---
Nurse's Notes [facility] Name: Karen Quick Age: 33 yrs Sex: Female : 1990 Arrival Date: 10/12/2023 Time: 15:39 Bed 10 Private MD: Diagnosis: Pneumonia in diseases classified elsewhere;Weakness Presentation: 10/11 16:35 Chief complaint: Patient states: she has been having cough, chills, vomiting and chills ap3 for "a few days". patient also states she has been feeling short of breath when ambulating. Coronavirus screen: Client presents with at least one sign or symptom that may indicate coronavirus-19. Ebola Screen: No symptoms or risks identified at this time. Initial Sepsis Screen: Does the patient meet any 2 criteria? Temp <36.0*C (96.8*F)) or > 38.3*C (100.9*F). HR > 90 bpm. Does the patient have a suspected source of infection? No. Patient's initial sepsis screen is negative. Risk Assessment: Do you want to hurt yourself or someone else? Patient reports no desire to harm self or others. Onset of symptoms was October 10, 2023. 16:35 Method Of Arrival: Ambulatory ap3 16:35 Acuity: EMILY 3 ap3 Triage Assessment: 16:38 General: Appears ill, Behavior is calm, cooperative, appropriate for age, Reports ap3 feeling ill for fatigue for. Pain: Denies pain. Neuro: Level of Consciousness is awake, alert, obeys commands, Oriented to person, place, time, situation. Neuro: Reports weakness. Cardiovascular: Patient's skin is warm and dry. Respiratory: Reports shortness of breath cough that is Airway is patent Respiratory effort is even, unlabored, Respiratory pattern is regular, symmetrical. 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 - Infectious Disease History:: Denies. - Social history:: Smoking status: Patient denies any tobacco usage or history of. Screenin:38 [facility] ED Fall Risk Assessment (Adult) History of falling in the last 3 months, ap3 including since admission No falls in past 3 months (0 pts) Confusion or Disorientation No (0 pts) Intoxicated or Sedated No (0 pts) Impaired Gait No (0 pts) Mobility Assist Device Used No (0 pt) Altered Elimination No (0 pt) Score/Fall Risk Level 0 - 2 = Low Risk Oriented to surroundings, Maintained a safe environment, Educated pt \\T\\ family on fall prevention, incl call for assistance when getting out of bed, Assessed \\T\\ reinforced patient's understanding of fall precautions, Hourly rounding (assess needs \\T\\ fall precautionary measures) done, Used ambulatory aids as needed (educated on \\T\\ assisted with), Used gait belt as appropriate. Abuse screen: Denies threats or abuse. Nutritional screening: No deficits noted. Tuberculosis screening: No symptoms or risk factors identified. Assessment: 17:18 General: Appears in no apparent distress. Behavior is calm, cooperative. Pain: Denies tl4 pain. Neuro: Level of Consciousness is awake, alert, obeys commands, Oriented to person, place, time, situation, Moves all extremities. Full function Gait is steady, Speech is normal. Cardiovascular: Capillary refill < 3 seconds Patient's skin is warm and dry. Respiratory: Airway is patent Respiratory effort is even, unlabored, Respiratory pattern is regular, symmetrical, Breath sounds are clear bilaterally. Respiratory: Reports cough that is non-productive. GI: Reports nausea. : No signs and/or symptoms were reported regarding the genitourinary system. EENT: No signs and/or symptoms were reported regarding the EENT system. Derm: No deficits noted. No signs and/or symptoms reported regarding the dermatologic system. Musculoskeletal: No deficits noted. No signs and/or symptoms reported regarding the musculoskeletal system. 18:39 Reassessment: Patient and/or family updated on plan of care and expected duration. Pain tl4 level reassessed. Patient is alert, oriented x 3, equal unlabored respirations, skin warm/dry/pink. Pt states she feels better, call dominguez at bedside, will continue to monitor. 20:21 Reassessment: Patient and/or family updated on plan of care and expected duration. Pain tl4 level reassessed. Patient is alert, oriented x 3, equal unlabored respirations, skin warm/dry/pink. Pt updated on status, call dominguez at bedside, pt denies needs, will continue to monitor. 22:51 Reassessment: Patient and/or family updated on plan of care and expected duration. Pain tl4 level reassessed. Patient is alert, oriented x 3, equal unlabored respirations, skin warm/dry/pink. Pt given disposable underwear and paper scrub pants due to bowel incontinence. Pt denies any additional needs at this time. Extended time to discharge due to medication infusion and frequent trips to the bathroom. Vital Signs: 16:35 BP 107 / 58; Pulse 119; Resp 19; Temp 101.8; Pulse Ox 97% on R/A; Weight 63.5 kg; ap3 Height 5 ft. 3 in. ; Pain 0/10; 17:25 BP 90 / 63; Pulse 93; Resp 16; Pulse Ox 95% on R/A; tl4 18:39 BP 103 / 65; Pulse 103; Resp 20; Pulse Ox 96% on R/A; tl4 19:08 BP 86 / 48; Pulse 95; Resp 20; Pulse Ox 93% on R/A; tl4 19:39 BP 92 / 59; Pulse 71; Resp 22; Pulse Ox 94% on R/A; tl4 20:21 BP 90 / 63; Pulse 72; Resp 20; Pulse Ox 95% on R/A; tl4 21:04 BP 87 / 63; Pulse 87; Resp 18; Temp 98.6(O); Pulse Ox 95% on R/A; tl4 21:40 BP 98 / 52; Pulse 65; Resp 20; Pulse Ox 95% on R/A; tl4 22:18 BP 96 / 50; Pulse 83; Resp 20; Pulse Ox 95% on R/A; tl4 22:54 BP 104 / 66; Pulse 73; Resp 16; Temp 98.9(O); Pulse Ox 97% on R/A; tl4 16:35 Body Mass Index 24.80 (63.50 kg, 160.02 cm) ap3 16:35 Pain Scale: Adult ap3 ED Course: 15:47 Patient arrived in ED. mg5 16:03 Juliana Martinez [facility]-C [facility]. sb4 16:03 Za Bermeo MD is Attending Physician. sb4 16:37 Triage completed. ap3 16:38 Arm band placed on left wrist. ap3 16:53 Ady Ramon, RN is Primary Nurse. tl4 17:10 Chest Pa And Lat (2 Views) XRAY In Process Unspecified. EDMS 17:17 Flu Sent. tl4 17:17 SARS RAPID Sent. tl4 17:17 CBC with Diff Sent. tl4 17:17 BMP Sent. tl4 17:19 Patient has correct armband on for positive identification. Placed in gown. Bed in low tl4 position. Call light in reach. Side rails up X 1. Provided Education on: call dominguez, ed process. Client placed on continuous cardiac and pulse oximetry monitoring. NIBP monitoring applied. Door closed. Noise minimized. Lights dimmed. Moved to private room. Warm blanket given. 17:19 No provider procedures requiring assistance completed. Initial lab(s) drawn, by me, tl4 sent to lab. COVID swab sent to lab. Flu and/or RSV swab sent to lab. Inserted saline lock: 22 gauge in left antecubital area, using aseptic technique. Blood collected. Flushed with 10 mL NS. 18:14 PHCP role handed off by Juliana Martinez PA-C cp 18:14 Bob Stapleton PA is PHCP. cp 20:54 Test, Urine Sent. tl4 20:54 Urinalysis w/ reflexes Sent. tl4 22:55 IV discontinued, intact, bleeding controlled, No redness/swelling at site. Pressure tl4 dressing applied. Administered Medications: 17:17 Drug: NS 0.9% IV 1000 ml IV at 1 bolus Per protocol; 1000 mL bolus Route: IV; Rate: 1 tl4 bolus; Site: left antecubital; Delivery: Primary tubing; 19:14 Follow up: Response: No adverse reaction; IV Status: Completed infusion; IV Intake: tl4 1000ml 17:17 Drug: Ondansetron IVP 4 mg IVP once; over 2 minutes Route: IVP; Infused Over: 2 mins; tl4 Site: left antecubital; 19:14 Follow up: Response: No adverse reaction tl4 17:17 Drug: Acetaminophen PO 1000 mg PO once Route: PO; tl4 19:14 Follow up: Response: No adverse reaction tl4 20:53 Drug: NS 0.9% IV 1000 ml IV at 1 bolus Per protocol; 1000 mL bolus Route: IV; Rate: 1 tl4 bolus; Site: left antecubital; Delivery: Primary tubing; 22:53 Follow up: Response: No adverse reaction; IV Status: Completed infusion; IV Intake: tl4 1000ml 20:53 Drug: Rocephin IV 1 grams IV at calculated rate once; Given slow IV push per pharmacy tl4 instructions Route: IV; Rate: calculated rate; Site: left antecubital; 21:20 Follow up: Response: No adverse reaction; IV Status: Completed infusion; IV Intake: [id number] 20:53 Drug: Zithromax IVPB 500 mg IVPB once over 1 hrs; mix in 250 mL NS Route: IVPB; Infused tl4 Over: 1 hrs; Site: left antecubital; Delivery: Primary tubing; 22:53 Follow up: Response: No adverse reaction; IV Status: Completed infusion; IV Intake: tl4 250ml 20:53 Drug: Potassium PO Effervescent Tablet 50 mEq PO once; dissolve in 4 ounces of water or tl4 juice Route: PO; 21:20 Follow up: Response: No adverse reaction tl4 Medication: 17:20 VIS not applicable for this client. tl4 Intake: 19:14 IV: 1000ml; Total: 1000ml. tl4 21:20 IV: 10ml; Total: 1010ml. tl4 22:53 IV: 1000ml; Total: 2010ml. tl4 22:53 IV: 250ml; Total: 2260ml. tl4 Outcome: 21:26 Discharge ordered by MD. cp 22:55 Discharged to home ambulatory, tl4 22:55 Condition: stable 22:55 Discharge instructions given to patient, Instructed on discharge instructions, follow up and referral plans. medication usage, Demonstrated understanding of instructions, follow-up care, medications, Prescriptions given X 3, 22:56 Patient left the ED. tl4 Addendum: 10/16/2023 07:58 Addendum: Culture Results: Positive urine culture. No further action required. Bacteria a a5 sensitive to prescribed antibiotic. Signatures: Dispatcher [employer] EDMS Cielo Hernandez RN RN aa5 Bob Stapleton PA PA cp Prokisch, Amanda, RN RN ap3 Juliana Martinez PA-C PAHeather Walker mg5 Ady Ramon, RN RN tl4
[2023-10-12 21:28] LABS: Calcium Oxalate Crystals- Ur Few /HPF (None Seen); Specific Gravity 1.029 (1.005-1.030); Urine Bacteria <20 /HPF (<20); Urine Bilirubin NEGATIVE (Negative); Urine Blood 3+ (OVER) (Negative); Urine Clarity Extremely Turbid (Clear); Urine Color Yellow (Yellow); Urine Crystals Unidentified Few /HPF (None Seen); Urine Culture Reflex Order REFLEXED; Urine Glucose NEGATIVE (Negative); Urine Ketones 1+ (Negative); Urine Microscopic Reflex YN ORDER UMIC; Urine Mucus 2+ /HPF (None Seen); Urine Nitrite NEGATIVE (Negative); Urine Protein 2+ (Negative); Urine RBC >50 /HPF (None Seen); Urine Urobilinogen 2+ (Normal); Urine WBC 20-50 /HPF (<5); Urine WBC Clump Occasional /HPF (None Seen)
[2023-10-12 21:30] LABS: Specific Gravity 1.029 (1.005-1.030)
[2023-10-12 23:49] VITALS: BP 104/66; TEMP 98.9; O2SAT 97
== END 2023-10-12 22:56 | disposition home or self-care (01) ==
LOC: ER 15:39
DX: J18.9 Pneumonia, unspecified organism (principal); Z11.52 Encounter for screening for COVID-19
CPT/HCPCS: 96365; 96361; 96368; 87040 ×2; 87088; 85025; 81001; 87086; 80048; 36415; 81025; 85610; 80076; 83605; 85730; 87077; 87186; 87804 ×2; 71046; 96375; 99284; 96366; 87811; J2405; J7050; J7030 ×2; J0696